=== PATIENT | female | born 1950 | race Caucasian/White ===

== ENCOUNTER 2017-03-07 11:17 | Outpatient (CLI) | payer OTHER ==
--- NOTE | 2017-03-07 13:38 | MRI ---
MRI CERVICAL SPINE WITHOUT CONTRAST: Date: 03/07/17 COMPARISON: 08/04/14. HISTORY: Cervical radiculopathy. Neck pain with left arm pain and numbness x2 years. Previous cervical fusion. TECHNIQUE: Cervical spine MRI is performed without intravenous Gadolinium administration. Multisequential, multi planar imaging is performed. FINDINGS: There is straightening of normal cervical lordosis. 2.3 mm of anterolisthesis of C2 upon C3, 2.6 mm o f retrolisthesis of C4 upon C5. Visualized brain parenchyma has appropriate signal intensity. There is appropriate signal intensity i n the cervical and upper thoracic cord. No T2 hyperintensity to suggest vertebral body edema. No evid ence of cord expansion. No significant STIR hyperintensity to suggest ligamentous injury. There are m ild degenerative changes involving the end plates at C5-C6. There are additional degenerative changes involving the left posterior elements at C2-C3. Posterior element edematous changes have developed s charlie the previous examination. C2-C3: No significant disc osteophyte complex. No significant central canal stenosis. Right neural foramen i s patent. Mild left foraminal narrowing due to degenerative change of the uncovertebral joint. C3-C4: Broad based disc osteophyte complex abuts the thecal sac. Ventral subarachnoid space is still maintai nicki. Mild central canal stenosis. Minimal flattening of the cervical cord. No T2 hyperintensity of th e cord. Degenerative changes and bilateral uncovertebral joints result in moderate right and moderate to severe left foraminal narrowing. C4-C5: Broad based disc osteophyte complex abuts the thecal sac. There is partial effacement of the subarach noid space. No T2 hyperintensity in the cord. Mild central canal stenosis. Degenerative changes in bi lateral uncovertebral joints results in moderate bilateral foraminal narrowing. C5-C6: Broad based disc osteophyte complex abuts the thecal sac. There is mild central canal stenosis. No T2 hyperintensity of the cord. Degenerative changes in bilateral uncovertebral joints results in severe right and moderate left foraminal narrowing. C6-C7: No significant disc osteophyte complex. No significant central canal stenosis. Right neural foramen i s patent. Mild left foraminal narrowing. C7-T1: No significant disc osteophyte complex. No significant central canal stenosis. Foramina are patent. IMPRESSION: Degenerative changes of the cervical spine as detailed above. POS: [facility]
== END 2017-03-07 11:18 | disposition home or self-care (01) ==
LOC: TBSIIMAG 11:17
PROVIDERS: ATTEND Neurological Surgery
DX: M47.22 Other spondylosis with radiculopathy, cervical region (principal)
CPT/HCPCS: 72141

== ENCOUNTER 2017-04-22 10:30 | Inpatient (IN) | payer OTHER ==
[2017-04-22 10:59] VITALS: BMI 33.3
[2017-04-29] MEDS ORDERED: CEFAZOLIN/Water 2 GM/20 ML SYRINGE ONE (09:37)
[2017-04-29] MEDS ORDERED: Midazolam HCl 2 mg/2 ml Vial ONE (11:53)
[2017-04-29] MEDS ORDERED: Fentanyl 250 MCG/5 ML VIAL ONE ×3 (11:56→13:56)
[2017-04-29] MEDS ORDERED: Sodium Chloride 0.9% 10 ML ONE (11:57)
--- NOTE | 2017-04-29 13:32 | OP ---
DATE OF PROCEDURE: 04/29/2017 SURGEON: Kameron Alcala M.D. SHADE CLASSIFIER: Yoni Lucas PA-C PROCEDURES: Anterior cervical diskectomy C3 through C6, interbody arthrodesis, intravertebral biomec hanical device, local morselized autograft, demineralized bone matrix, anterior titanium instrumentat ion C3-C6. PROCEDURE IN DETAIL: The patient was brought into the operating room and intubated. She was positio nicki supine with the head in modest extension on a gel-filled donut. Incision was made in the right p recervical area and dissecting medial to the sternocleidomastoid muscle, identified the anterior cerv ical spine and our level was confirmed by x-ray. We placed distraction across the disc spaces, and u sing the operating microscope and microdissection techniques, completely decompressed the intraverteb ral disc decompressing the neural elements at C3-4, C4-5 and C5-6. Next, the bony endplates were dec orticated for the purpose of arthrodesis and appropriately sized intravertebral biomechanical PEEK de vice was brought into the field, filled with demineralized bone matrix and local morselized autograft , and tapped into place securely at C3-4, C4-5 and C5-6. Next, an anterior plate was brought in the field and secured to C3, C4, C5, and C6 using two 14 mm screws at each level. The wound was then ext ensively irrigated, immaculate hemostasis was secured. The wound was closed in anatomic layers.
[2017-04-29] MEDS ORDERED: HYDROmorphone 0.5 MG/0.5 ML SYRINGE ONE ×3 (14:57→15:21)
[2017-04-29] MEDS ORDERED: PHENYLEPHRINE-NS 100 MCG/ML 10 ML SYRINGE ONE (15:26)
[2017-04-29] MEDS ORDERED: Ketorolac Tromethamine 30 MG/ML VIAL ONE (15:26)
[2017-04-29] MEDS ORDERED: Ondansetron HCl/PF 4 MG/2 ML Vial ONE (15:26)
[2017-04-29] MEDS ORDERED: Propofol 200 MG/20 ML VIAL ONE (15:26)
[2017-04-29] MEDS ORDERED: Lidocaine 1% PF 5 ML VIAL ONE (15:26)
[2017-04-29] MEDS ORDERED: Esmolol 100 MG/10 ML VIAL ONE (15:26)
[2017-04-29] MEDS ORDERED: Glycopyrrolate 0.2 MG/ML 5 ML SYRINGE ONE (15:26)
[2017-04-29] MEDS ORDERED: Labetalol 100 MG/20 ML MDV ONE (15:26)
[2017-04-29] MEDS ORDERED: Dexamethasone 20 MG/5 ML VIAL ONE (15:26)
[2017-04-29] MEDS ORDERED: Acetaminophen 650 MG Suppository PR PRN (16:03)
[2017-04-29] MEDS ORDERED: diphenhydrAMINE 50 MG/ML VIAL IVP PRN (16:03)
[2017-04-29] MEDS ORDERED: Promethazine HCl 25 MG/ML VIAL IM PRN (16:03)
[2017-04-29] MEDS ORDERED: diphenhydrAMINE 25 MG CAP PO PRN (16:03)
[2017-04-29] MEDS ORDERED: Promethazine 25 MG TAB PO PRN (16:03)
[2017-04-29] MEDS ORDERED: Promethazine HCl 12.5 MG SUPP PR PRN (16:03)
[2017-04-29] MEDS ORDERED: Acetaminophen 325 MG TAB PO PRN (16:03)
[2017-04-29] MEDS ORDERED: Mag-Al 1200 mg/1200 mg/30 ML UDCUP PO PRN (16:03)
[2017-04-29] MEDS ORDERED: Milk Of Magnesia 30 ML UDCUP PO PRN (16:03)
[2017-04-29] MEDS ORDERED: Acetaminophen/Codeine 30-300mg Tablet PO PRN (16:03)
[2017-04-29] MEDS ORDERED: Ondansetron HCl/PF 4 MG/2 ML Vial IVP PRN (16:04)
[2017-04-29] MEDS: Sodium Chloride 0.9% 1,000 ML IV SCH (16:47)
[2017-04-29] MEDS: tiZANidine HCl 4 MG TAB PO PRN (17:45)
[2017-04-29] MEDS ORDERED: Ketorolac Tromethamine 30 MG/ML VIAL IVP SCH (18:00)
[2017-04-29] MEDS: Ketorolac Tromethamine 30 MG/ML VIAL IVP SCH (21:17)
[2017-04-29] MEDS: CEFAZOLIN/Water 2 GM/20 ML SYRINGE SLOW IVP SCH (22:04)
[2017-04-29] MEDS: Acetaminophen/Codeine 30-300mg Tablet PO PRN (22:08)
[2017-04-29] MEDS: Meperidine HCl/PF 25 MG/ML VIAL SLOW IVP PRN (23:52)
[2017-04-30] MEDS: Ketorolac Tromethamine 30 MG/ML VIAL IVP SCH ×3 (02:28→13:42)
[2017-04-30] MEDS: Sodium Chloride 0.9% 1,000 ML IV SCH (02:29)
[2017-04-30] MEDS: CEFAZOLIN/Water 2 GM/20 ML SYRINGE SLOW IVP SCH (06:06)
[2017-04-30] MEDS ORDERED: DULoxetine 30 MG CAP PO SCH (09:00)
[2017-04-30] MEDS ORDERED: Amlodipine 5 MG TAB PO SCH (09:00)
[2017-04-30 11:20] VITALS: TEMP 98.6
[2017-04-30] MEDS: Meperidine HCl/PF 25 MG/ML VIAL SLOW IVP PRN (11:26)
[2017-04-30] MEDS ORDERED: cloNIDine 0.1 MG TAB PO SCH (12:45)
[2017-04-30] MEDS: Acetaminophen/Codeine 30-300mg Tablet PO PRN (13:46)
[2017-04-30] MEDS: tiZANidine HCl 4 MG TAB PO PRN (13:46)
--- NOTE | 2017-04-30 14:02 | CON ---
DATE OF CONSULTATION: 04/30/2017 REASON FOR CONSULTATION: Hypertension. HISTORY OF PRESENT ILLNESS: Ms. Nettie Pereira is a 66-year-old female with a past medical history of h ypertension who was admitted for anterior cervical diskectomy of C3-C6. Internal Medicine consulted for management of her hypertension. Today, she has no complaints apart from occasional neck pain whi ch is well controlled by her medications. She denies chest pain, shortness of breath, palpitations, PND, orthopnea, or extremity edema. On outpatient basis she takes 2.5 mg of amlodipine, but reports that her blood pressure has been persistently high. She has not been to see her primary care alec crawford in a while because according to her "we do not get along", but has identified another provider leslye t she will see this week following discharge. In the hospital, blood pressure has ranged between 98/ 53-185/99. PAST MEDICAL HISTORY: Hypertension. ALLERGIES: HYDROCODONE, BITARTRATE, SULFA MEDICATIONS, TRAMADOL, MORPHINE. FAMILY HISTORY: Reviewed and noncontributory. REVIEW OF SYSTEMS: Twelve point review of systems conducted and negative except as stated in HPI. PHYSICAL EXAMINATION: VITAL SIGNS: Temperature 97.6, pulse rate 111, respiratory rate 20, oxygen saturation 98%, and blood pressure 179/99. GENERAL: Not in acute distress, lying comfortably in bed. HEENT: Not pale, anicteric. Normocephalic, atraumatic. Moist mucous membranes. NECK: Anterior neck with postsurgical scar, covered, clean, dry dressing. RESPIRATORY: Vesicular breath sounds bilaterally. No wheezes, rales or rhonchi. CARDIOVASCULAR: S1 and S2, only slightly tachycardic with regular rhythm. No murmurs, rubs or bennett ps. ABDOMEN: Soft, nontender, nondistended. Bowel sounds are present with no hepatosplenomegaly. MUSCULOSKELETAL: Moves all extremities spontaneously. No edema. NEUROLOGIC: Alert and well oriented to time, place and person. No focal deficits. PSYCHIATRIC: Normal mood and affect. SKIN: Warm, dry, well-perfused. No rashes or lesions. ASSESSMENT AND PLAN: Hypertension. This is uncontrolled and this seems to be chronically uncontroll ed. She only takes 2.5 mg of amlodipine. We will increase to 5 mg and monitor blood pressure closel y. She also reports a history of tachycardia, unclear if she has ever had a TTE, but she would likel y require on an outpatient basis. She might also need to be started on a beta alessandro for rate contr ol and hypertension, but her tachycardia might be attributed to recent surgery and pain following allison lea. We will continue to monitor the patient's response to changes in medication.
[2017-04-30 14:47] VITALS: BP 123/65
[2017-04-30] MEDS ORDERED: Atorvastatin Calcium 20 MG TAB PO SCH (21:00)
== END 2017-04-30 15:45 | disposition home or self-care (01) | DRG 473 ==
LOC: SURG A 04-29 07:57 → 3SE 04-29 15:34
PROVIDERS: ADMIT Neurological Surgery; ATTEND Neurological Surgery
PROC: 0RG20A0 Fusion of 2 or more Cervical Vertebral Joints with Interbody Fusion Device, Anterior Approach, Anterior Column, Open Approach (ICD-10-PCS; principal; 2017-04-29)
PROC: 0RT30ZZ Resection of Cervical Vertebral Disc, Open Approach (ICD-10-PCS; 2017-04-29)
DX: M50.11 Cervical disc disorder with radiculopathy, high cervical region (principal); E78.5 Hyperlipidemia, unspecified; I10 Essential (primary) hypertension
CPT/HCPCS: 76001; A4216; C1713; C1776; J1100; J1170; J1885; J2001; J2175; J2250; J2405; J2704; J3010; J3490

== ENCOUNTER 2017-04-22 10:31 | Outpatient (CLI) | payer OTHER ==
[2017-04-22 12:24] LABS: Mean Corpuscular HGB CONC 33.4 g/dL (32.0-36.0); Mean Platelet Volume 7.6 fL (7.4-10.4); Platelet Count 333 thou/uL (130-400); RBC Distribution Width 12.9 % (11.5-14.5); Red Blood Cell (RBC) Count 5.17 mill/uL (4.20-5.40); White Blood Cell (WBC) Count 10.1 thou/uL (4.8-10.8)
[2017-04-22 12:45] LABS: Anion Gap 15 mmol/L (10-20); BUN (Urea Nitrogen) 23 mg/dL (9.8-20.1); Calc. Creatinine Clearance 0 mL/min (70-130); Calcium 10.6 mg/dL (7.8-10.44); Carbon Dioxide 28 mmol/L (23-31); Chloride 103 mmol/L (98-107); Estimated GFR-MDRD 75; Glucose 102 mg/dL (80-115); Potassium 4.8 mmol/L (3.5-5.1); Sodium 141 mmol/L (136-145)
== END 2017-04-22 10:32 | disposition home or self-care (01) ==
LOC: LABBT 10:31
PROVIDERS: ATTEND Neurological Surgery
DX: Z01.810 Encounter for preprocedural cardiovascular examination (principal); Z01.812 Encounter for preprocedural laboratory examination; M54.12 Radiculopathy, cervical region
CPT/HCPCS: 80048; 85027; 93005; 93010

== ENCOUNTER 2017-05-15 15:11 | Outpatient (CLI) | payer OTHER ==
--- NOTE | 2017-05-15 18:08 | RAD ---
4 VIEWS CERVICAL SPINE: Date: 05/15/17 HISTORY: Cervical radiculopathy at C6 level. Follow-up postsurgical changes. FINDINGS: C1 to cervicothoracic junction seen on the lateral and swimmer's views of cervical spine. There are p ostsurgical changes related to anterior cervical fusion of the C3 through C6 levels with anterior monico te and screws transfixing these levels with intradiscal prostheses also present. No hardware complica tion is appreciated on this exam. No fracture or subluxation is identified. Prevertebral soft tissues are within normal limits. IMPRESSION: Postsurgical changes related to anterior cervical fusion of C3 through C6 levels. POS: [facility]
== END 2017-05-15 15:12 | disposition home or self-care (01) ==
LOC: TBSIIMAG 15:11
PROVIDERS: ATTEND Neurological Surgery
DX: M54.12 Radiculopathy, cervical region (principal); Z98.1 Arthrodesis status
CPT/HCPCS: 72040

== ENCOUNTER 2017-06-25 15:13 | Outpatient (CLI) | payer OTHER ==
--- NOTE | 2017-06-25 15:52 | RAD ---
4 VIEWS CERVICAL SPINE: Date: 06/25/17 HISTORY: Cervical disc degeneration, M50.3. AP, lateral, open-mouth odontoid, and swimmer's views of cervical spine obtained. Comparison made to previous exam from 05/15/17. FINDINGS: Four views of cervical spine demonstrate ACDF with fusion of the C3, C4, C5, and C6 vertebra. Plates and screws are in good position. No evidence of kat or retrolisthesis seen. Disc spaces are well m aintained. IMPRESSION: C3 through C6 cervical spine fusion. POS: [facility]
== END 2017-06-25 15:14 | disposition home or self-care (01) ==
LOC: TBSIIMAG 15:13
PROVIDERS: ATTEND Neurological Surgery
DX: M50.30 Other cervical disc degeneration, unspecified cervical region (principal); Z98.1 Arthrodesis status
CPT/HCPCS: 72040

== ENCOUNTER 2020-05-27 02:42 | Inpatient (IN) | payer MEDICARE, OTHER ==
[2020-05-27] MEDS ORDERED: Morphine 4 MG/ML VIAL ONE (03:31)
[2020-05-27] MEDS ORDERED: Fentanyl 100 MCG/2 ML VIAL ONE ×3 (03:31→18:03)
[2020-05-27] MEDS ORDERED: HYDROcodone/Acetaminophen 5/325 mg Tablet PO PRN (05:16)
[2020-05-27] MEDS ORDERED: Ondansetron PF 4 MG/2 ML Vial IVP PRN (05:16)
[2020-05-27] MEDS ORDERED: Ondansetron ODT 4 MG TAB PO PRN (05:16)
[2020-05-27] MEDS ORDERED: Acetaminophen 325 MG TAB PO PRN (05:16)
[2020-05-27] MEDS ORDERED: Ketorolac Tromethamine 30 MG/ML VIAL IVP PRN (05:21)
[2020-05-27] MEDS ORDERED: Sodium Chloride 0.9% 1,000 ML IV SCH ×3 (06:00→22:10)
[2020-05-27] MEDS ORDERED: Calcium Carbonate 500 MG ChewTAB PO PRN (07:47)
[2020-05-27 07:49] VITALS: BMI 29.6
[2020-05-27] MEDS: Saccharomyces boulardii 250 MG CAP PO SCH (08:37)
[2020-05-27] MEDS: Sodium Chloride 0.9% 1,000 ML IV SCH ×3 (08:40→17:10)
[2020-05-27] MEDS: Senokot S 8.6-50 MG TAB PO SCH ×2 (08:44→21:44)
[2020-05-27] MEDS ORDERED: cefTRIAXone\\ROCEPHIN 2 GM in Sodium Chloride 0.9% 100 ML IVPB SCH (09:00)
[2020-05-27] MEDS ORDERED: Tamsulosin HCl 0.4 MG CAP PO SCH (09:00)
[2020-05-27 11:16] LABS: SARS-CoV-2 NAA Rapid Test Not Detected (NotDetected)
[2020-05-27] MEDS ORDERED: Dextrose 50% Abboject 50 ML SYRINGE SLOW IVP PRN (11:56)
[2020-05-27] MEDS ORDERED: Insulin Regular 300 UNITS/3 ML VIAL SC PRN ×2 (11:56)
[2020-05-27] MEDS ORDERED: Dextrose 5% in Water 1,000 ML IV PRN (11:56)
[2020-05-27] MEDS ORDERED: Iothalamate Meglumine 60% 50 ML VIAL FS ONE ×2 (17:06→18:34)
[2020-05-27] MEDS ORDERED: B & O ONE (17:06)
[2020-05-27] MEDS ORDERED: Midazolam HCl 2 mg/2 ml Vial ONE (18:03)
[2020-05-27] MEDS ORDERED: Lidocaine 1% PF 5 ML VIAL ONE (18:09)
[2020-05-27] MEDS ORDERED: Ondansetron PF 4 MG/2 ML Vial ONE (18:09)
[2020-05-27] MEDS ORDERED: PHENYLEPHRINE-NS 100 MCG/ML 10 ML SYRINGE ONE (18:09)
[2020-05-27] MEDS ORDERED: Dexamethasone 20 MG/5 ML VIAL ONE (18:09)
[2020-05-27] MEDS ORDERED: PROPOFOL 200 MG/20 ML VIAL ONE (18:09)
[2020-05-27] MEDS ORDERED: Promethazine HCl 25 MG/ML VIAL IM PRN (19:04)
[2020-05-27] MEDS ORDERED: Ondansetron HCl/PF 4 MG/2 ML Vial IVP PRN (19:04)
[2020-05-27] MEDS ORDERED: Promethazine HCl 25 MG/ML VIAL SLOW IVP PRN (19:04)
[2020-05-27] MEDS ORDERED: Acetaminophen/Codeine 30-300mg Tablet PO PRN (19:47)
[2020-05-27] MEDS ORDERED: Atorvastatin Calcium 20 MG TAB PO SCH (21:00)
[2020-05-27] MEDS ORDERED: cefTRIAXone\\ROCEPHIN 1 GM in Sodium Chloride 0.9% 100 ML IVPB SCH (21:00)
[2020-05-27] MEDS ORDERED: TURMERIC ROOT PO SCH (21:00)
[2020-05-27] MEDS: Fish Oil 1,000 MG CAP PO SCH (21:45)
[2020-05-27] MEDS: metFORMIN 500 MG TAB PO SCH (21:45)
[2020-05-27] MEDS: Trospium 20 MG TAB PO SCH (21:45)
[2020-05-27] MEDS: DULoxetine 30 MG CAP PO SCH (21:45)
[2020-05-27] MEDS: Cefprozil 250 MG TAB PO SCH (21:45)
[2020-05-27] MEDS: Calcium Carbonate 600 MG TAB PO SCH (21:45)
[2020-05-28 04:51] VITALS: TEMP 98.2
[2020-05-28 05:31] LABS: #Monocytes 0.2 thou/uL (0.11-0.59); #Neutrophils 13.9 thou/uL (1.40-6.50); %Basophils 0.1 % (0.0-1.0); %Lymphocytes 6.7 % (21.0-51.0); %Monocytes 1.5 % (0.0-10.0); %Neutrophils 91.7 % (42.0-75.0); Hemoglobin 12.1 g/dL (12.0-16.0); Mean Corpuscular HGB CONC 33.6 g/dL (32.0-36.0); Mean Corpuscular Hemoglobin 30.8 pg (27.0-31.0); Mean Corpuscular Volume 91.6 fL (78.0-98.0); Mean Platelet Volume 8.1 fL (7.4-10.4); Platelet Count 219 thou/uL (130-400); RBC Distribution Width 12.4 % (11.5-14.5); Red Blood Cell (RBC) Count 3.92 mill/uL (4.20-5.40); White Blood Cell (WBC) Count 15.2 thou/uL (4.8-10.8)
[2020-05-28 05:52] LABS: Anion Gap 11 mmol/L (10-20); BUN (Urea Nitrogen) 14 mg/dL (9.8-20.1); Calc. Creatinine Clearance 111 mL/min (70-130); Calcium 8.8 mg/dL (7.8-10.44); Carbon Dioxide 23 mmol/L (23-31); Chloride 110 mmol/L (98-107); Glucose 154 mg/dL (80-115); Potassium 3.5 mmol/L (3.5-5.1); Sodium 140 mmol/L (136-145)
[2020-05-28 08:16] VITALS: BP 132/76
[2020-05-28] MEDS: Saccharomyces boulardii 250 MG CAP PO SCH ×2 (08:23→08:24)
[2020-05-28] MEDS: Senokot S 8.6-50 MG TAB PO SCH (08:23)
[2020-05-28] MEDS: metFORMIN 500 MG TAB PO SCH (08:24)
[2020-05-28] MEDS: Trospium 20 MG TAB PO SCH (08:24)
[2020-05-28] MEDS: Calcium Carbonate 600 MG TAB PO SCH (08:24)
[2020-05-28] MEDS: Cefprozil 250 MG TAB PO SCH (08:24)
[2020-05-28] MEDS: Fish Oil 1,000 MG CAP PO SCH (08:25)
[2020-05-28] MEDS: DULoxetine 30 MG CAP PO SCH (08:25)
[2020-05-28] MEDS ORDERED: Amlodipine 10 MG TAB PO SCH (09:00)
[2020-05-28] MEDS ORDERED: Cholecalciferol 1,000 UNITS (25 MCG) TAB PO SCH (09:00)
[2020-05-28] MEDS ORDERED: Multivit, Therapeutic 1 TAB PO SCH (09:00)
[2020-05-28] MEDS ORDERED: Losartan 25 MG TAB PO SCH (09:00)
[2020-06-04 13:15] LABS: CA Oxalate Dihydrate 60 % (.); CA Oxalate Monohydrate 35 % (.); Color Tan (.); Stone Weight 2 mg (.)
== END 2020-05-28 10:32 | disposition home or self-care (01) | DRG 854 ==
LOC: ERS 02:42 → SURG B 05:05
PROVIDERS: ADMIT Student in an Organized Health Care Education/Training Program; ATTEND Internal Medicine
PROC: 0T778DZ Dilation of Left Ureter with Intraluminal Device, Via Natural or Artificial Opening Endoscopic (ICD-10-PCS; principal; 2020-05-27)
PROC: 0TC78ZZ Extirpation of Matter from Left Ureter, Via Natural or Artificial Opening Endoscopic (ICD-10-PCS; 2020-05-27)
PROC: BT1F1ZZ Fluoroscopy of Left Kidney, Ureter and Bladder using Low Osmolar Contrast (ICD-10-PCS; 2020-05-27)
DX: A41.9 Sepsis, unspecified organism (principal); N13.6 Pyonephrosis; E11.9 Type 2 diabetes mellitus without complications; Z20.822 Contact with and (suspected) exposure to COVID-19; K21.9 Gastro-esophageal reflux disease without esophagitis; E78.5 Hyperlipidemia, unspecified; E78.00 Pure hypercholesterolemia, unspecified; E78.1 Pure hyperglyceridemia; I10 Essential (primary) hypertension; F32.9 Major depressive disorder, single episode, unspecified; F17.210 Nicotine dependence, cigarettes, uncomplicated; Z90.49 Acquired absence of other specified parts of digestive tract; Z88.5 Allergy status to narcotic agent; Z88.2 Allergy status to sulfonamides; Z88.8 Allergy status to other drugs, medicaments and biological substances; Z98.1 Arthrodesis status; Z98.51 Tubal ligation status
CPT/HCPCS: 36415; 36416; 74018; 80048; 82365; 85025; 88300; 96374; J0696; J1100; J1885; J2250; J2270; J2405; J2704; J3010; J3490; Q9961; U0002